=== PATIENT | female | born 1975 | race Caucasian/White ===

== ENCOUNTER 2023-10-30 14:34 | Emergency (ER) | payer OTHER ==
[~2023-10-30] VITALS: Ht 154.9 cm; Wt 79.4 kg
[2023-10-30 15:31] VITALS: BP 148/79; PULSE 90; RESP 18; TEMP 98.3; O2SAT 97
[2023-10-30 16:16] LABS: BILIRUBIN,URINE NEGATIVE (NEGATIVE); BLOOD, URINE 3+ (NEGATIVE); COLOR,URINE YELLOW (YELLOW); LEUKOCYTE ESTERASE ,URINE 2+ (NEGATIVE); NITRITE, URINE POSITIVE (NEGATIVE); PH,URINE 6.5 (5.0-9.0); PROTEIN,URINE 3+ (NEGATIVE); UGLUCOSE NEGATIVE (NEGATIVE)
[2023-10-30 16:17] LABS: APPEARANCE,URINE SLIGHTLY CLOUDY (CLEAR)
[2023-10-30 16:19] LABS: BACTERIA,URINE 3+ /HPF (None Seen); MUCUS,URINE None Seen /LPF (None Seen); RBC,URINE 20-50 /HPF (0-5); SQUAMOUS EPITHELIAL CELL,UR 4-10 (MOD) /LPF (0-3 (FEW)); WBC,URINE 16-25 (MOD) /HPF (0-5)
[2023-10-30] MEDS ORDERED: NITR100C7 PO (16:33)
[2023-10-30] MEDS ORDERED: PYR100 PO (16:33)
[2023-10-30 16:55] VITALS: BP 135/88; PULSE 78; RESP 16; TEMP 98; O2SAT 99
== END 2023-10-30 16:55 | disposition home or self-care (01) ==
LOC: MED 14:34
DX: N39.0 Urinary tract infection, site not specified (principal)
CPT/HCPCS: 81001; 81025; 87086; 87186; 99283